=== PATIENT | male | born 1960 | race Caucasian/White ===

== ENCOUNTER 2017-06-30 16:52 | Inpatient (IN) | payer SELFPAY ==
[~2017-06-30] VITALS: Ht 177.8 cm; Wt 143.4 kg
[2017-06-30 17:36] LABS: HEMATOCRIT 46.5 % (38.0-50.0); HEMOGLOBIN 15.6 G/DL (12.5-16.6); MCH 28.4 PG (29.0-34.0); MCHC 33.5 G/DL (30.0-36.0); MCV 84.5 FL (86-99); PLATELET COUNT 223 K/uL (156-360); RBC DIS.WIDTH-CV 13.5 % (11.8-14.6); RBC DIS.WIDTH-SD 41.8 % (39-53)
[2017-06-30 17:50] LABS: CHLORIDE 105 mEq/L (99-109); SODIUM 139 mEq/L (136-147)
[2017-06-30 17:51] LABS: GLUCOSE 124 mg/dL (70-99)
[2017-06-30 17:55] LABS: CREATININE 0.8 mg/dL (0.6-1.3); GFR ESTIMATE (CALCULATED) > 59 mL/min/ (58.99-99999)
[2017-06-30 17:56] LABS: TROP-I INTERPRETATION NEGATIVE; TROPONIN-I 0.05 ng/mL (0.0-0.30); UREA NITROGEN (BUN) 8 mg/dL (9-23)
[2017-06-30 19:15] LABS: INTER. NORMALIZED RATIO 1.3
[2017-06-30 19:18] LABS: PTT 30.8 SEC (25-37)
[2017-06-30] MEDS ORDERED: VALSARTAN-HCTZ1 EAC3 PO (20:32)
[2017-06-30] MEDS ORDERED: AMLODIPINE BESY10 MG PO (20:32)
[2017-06-30] MEDS ORDERED: METFORMIN HCL500 M1 PO (20:32)
[2017-06-30] MEDS ORDERED: FOLIC ACID0.4 MG PO (20:33)
[2017-06-30] MEDS ORDERED: ALEVE220 MG PO (20:33)
[2017-06-30] MEDS ORDERED: MEN'S ONE DAIL1 EACH PO (20:33)
[2017-06-30] MEDS ORDERED: ADULT ASPIRIN R81 MG PO (20:33)
[2017-06-30] MEDS ORDERED: FISH OIL OMEGA1 EAC2 PO (20:33)
[2017-06-30 23:47] VITALS: BP 142/79
[2017-07-01 03:55] VITALS: BP 155/85
[2017-07-01 06:03] LABS: INTER. NORMALIZED RATIO 1.2
[2017-07-01 06:06] LABS: PTT 28.4 SEC (25-37)
[2017-07-01 06:19] LABS: BASOPHIL (%) 0.9 % (0-1); BASOPHIL COUNT 0.1 K/uL (0-0.1); EOSINOPHIL (%) 1.9 % (0-5); EOSINOPHIL COUNT 0.2 K/uL (0-0.3); HEMATOCRIT 44.4 % (38.0-50.0); HEMOGLOBIN 14.3 G/DL (12.5-16.6); IMMATURE GRANULOCYTE (%) 0.7 % (0.0-0.7); LYMPHOCYTE COUNT 3.1 K/uL (1.0-2.8); MCH 27.6 PG (29.0-34.0); MCHC 32.2 G/DL (30.0-36.0); MCV 85.7 FL (86-99); MONOCYTE (%) 8.1 % (3-12); MONOCYTE COUNT 0.8 K/uL (0-0.8); NEUTROPHIL (%) 57.4 % (45-76); NEUTROPHIL COUNT 5.7 K/uL (1.8-6.4); PLATELET COUNT 230 K/uL (156-360); RBC DIS.WIDTH-CV 13.6 % (11.8-14.6); RBC DIS.WIDTH-SD 42.8 % (39-53); RED BLOOD COUNT 5.18 M/uL (4.00-5.50); WHITE BLOOD COUNT 9.9 K/uL (4.1-10.2)
[2017-07-01 06:24] LABS: CHLORIDE 102 MEQ/L (99-109); CREATININE 0.8 MG/DL (0.6-1.3); GFR ESTIMATE (CALCULATED) > 59 mL/min/ (58.99-99999); GLUCOSE 119 mg/dL (70-99); POTASSIUM 3.7 MEQ/L (3.7-5.4); SODIUM 138 MEQ/L (136-147); UREA NITROGEN (BUN) 12 mg/dL (9-23)
[2017-07-01 08:15] VITALS: BP 180/83
[2017-07-01 12:21] VITALS: BP 169/90
[2017-07-01 15:48] VITALS: BP 178/88
[2017-07-01 19:55] VITALS: BP 165/79
[2017-07-01 23:07] VITALS: BP 183/91
[2017-07-02 04:11] VITALS: BP 135/77
[2017-07-02 05:56] LABS: CHLORIDE 101 MEQ/L (99-109); CREATININE 0.8 MG/DL (0.6-1.3); GFR ESTIMATE (CALCULATED) > 59 mL/min/ (58.99-99999); GLUCOSE 134 mg/dL (70-99); POTASSIUM 3.8 MEQ/L (3.7-5.4); SODIUM 136 MEQ/L (136-147); UREA NITROGEN (BUN) 11 mg/dL (9-23)
[2017-07-02 07:39] VITALS: BP 136/74
[2017-07-02 12:27] VITALS: BP 134/72
[2017-07-02 17:37] VITALS: BP 130/79
[2017-07-02 19:37] VITALS: BP 123/66
[2017-07-02 23:17] VITALS: BP 137/74
[2017-07-03 08:06] VITALS: BP 148/76
[2017-07-03] MEDS ORDERED: LEVAQUIN750 MG PO (09:33)
== END 2017-07-03 10:57 | disposition home or self-care (01) | DRG 194 ==
LOC: EME 16:52 → 3EAST 21:56 → EDOF 21:56 → ENRESERV 21:57 → 3EAST 22:54
PROVIDERS: Family Medicine; Hospitalist
DX: J15.9 Unspecified bacterial pneumonia (principal); J44.0 Chronic obstructive pulmonary disease with (acute) lower respiratory infection; R09.02 Hypoxemia; R04.2 Hemoptysis; E11.9 Type 2 diabetes mellitus without complications; I10 Essential (primary) hypertension; I25.10 Atherosclerotic heart disease of native coronary artery without angina pectoris; E66.01 Morbid (severe) obesity due to excess calories; Z68.42 Body mass index [BMI] 45.0-49.9, adult; Z79.84 Long term (current) use of oral hypoglycemic drugs; Z79.82 Long term (current) use of aspirin; Z95.5 Presence of coronary angioplasty implant and graft; Z87.891 Personal history of nicotine dependence
CPT/HCPCS: 71046; 71275; 80048; 82948; 83605; 84484; 85025; 85027; 85610; 85730; 87040; 87070; 87205; 87449; 93005; 94640; 94799; 99202; 99281; 99285; J0295; J0456; J1650; J7050

== ENCOUNTER 2017-09-06 11:40 | Observation (INO) | payer SELFPAY ==
[~2017-09-06] VITALS: Ht 180.3 cm; Wt 145.5 kg
[~2017-09-06 11:40] MED LIST: ADULT ASPIRIN R81 MG PO; ALEVE220 MG PO; AMLODIPINE BESY10 MG PO; FISH OIL OMEGA1 EAC2 PO; FOLIC ACID0.4 MG PO; LEVAQUIN750 MG PO; MEN'S ONE DAIL1 EACH PO; METFORMIN HCL500 M1 PO; VALSARTAN-HCTZ1 EAC3 PO
[2017-09-06 12:13] LABS: HEMATOCRIT 45.3 % (38.0-50.0); HEMOGLOBIN 15.6 G/DL (12.5-16.6); MCH 29.1 PG (29.0-34.0); MCHC 34.4 G/DL (30.0-36.0); MCV 84.5 FL (86-99); PLATELET COUNT 231 K/uL (156-360); RBC DIS.WIDTH-CV 13.4 % (11.8-14.6); RBC DIS.WIDTH-SD 41.2 % (39-53); RED BLOOD COUNT 5.36 M/uL (4.00-5.50); WHITE BLOOD COUNT 10.2 K/uL (4.1-10.2)
[2017-09-06 12:24] LABS: CHLORIDE 103 mEq/L (99-109); POTASSIUM 4.3 mEq/L (3.7-5.4); SODIUM 138 mEq/L (136-147)
[2017-09-06 12:25] LABS: GLUCOSE 144 mg/dL (70-99)
[2017-09-06 12:29] LABS: CREATININE 0.9 mg/dL (0.6-1.3); GFR ESTIMATE (CALCULATED) > 59 mL/min/ (58.99-99999)
[2017-09-06 12:30] LABS: UREA NITROGEN (BUN) 11 mg/dL (9-23)
[2017-09-06 15:40] LABS: TROP-I INTERPRETATION NEGATIVE; TROPONIN-I 0.03 ng/mL (0.0-0.30)
[2017-09-06 19:57] LABS: TROP-I INTERPRETATION NEGATIVE; TROPONIN-I 0.03 ng/mL (0.0-0.30)
[2017-09-06 22:18] VITALS: BP 153/81
[2017-09-07 00:10] VITALS: BP 159/76
[2017-09-07 01:03] LABS: TROP-I INTERPRETATION NEGATIVE; TROPONIN-I 0.03 ng/mL (0.0-0.30)
[2017-09-07 04:11] VITALS: BP 145/79
[2017-09-07 07:27] LABS: CHLORIDE 99 MEQ/L (99-109); CREATININE 0.9 MG/DL (0.6-1.3); GFR ESTIMATE (CALCULATED) > 59 mL/min/ (58.99-99999); GLUCOSE 135 mg/dL (70-99); POTASSIUM 4.4 MEQ/L (3.7-5.4); SODIUM 140 MEQ/L (136-147); UREA NITROGEN (BUN) 11 mg/dL (9-23)
[2017-09-07 07:55] VITALS: BP 164/83
[2017-09-07] MEDS ORDERED: LEVOFLOXACIN750 MG PO (11:56)
[2017-09-07] MEDS ORDERED: MUCINEX1200 MG PO (11:57)
[2017-09-07] MEDS ORDERED: PROAIR HFA8.5 GM IH (11:57)
== END 2017-09-07 12:33 | disposition home or self-care (01) ==
LOC: EME 11:40 → 5WEST 17:20 → EDOF 17:20 → ENRESERV 17:48 → 5WEST 21:40 → ENPENDDIS 09-07 → 5WEST 09-07 12:33
PROVIDERS: Hospitalist
DX: R07.9 Chest pain, unspecified (principal); J20.9 Acute bronchitis, unspecified; I10 Essential (primary) hypertension; I25.10 Atherosclerotic heart disease of native coronary artery without angina pectoris; Z95.5 Presence of coronary angioplasty implant and graft; Z87.01 Personal history of pneumonia (recurrent); Z90.49 Acquired absence of other specified parts of digestive tract; Z83.3 Family history of diabetes mellitus; Z87.891 Personal history of nicotine dependence; Z79.82 Long term (current) use of aspirin; Z79.84 Long term (current) use of oral hypoglycemic drugs
CPT/HCPCS: 71046; 80048; 84484; 85027; 93005; 94640; 99281; 99285; G0378

== ENCOUNTER 2018-01-18 07:14 | Inpatient (IN) | payer MEDICARE ==
[~2018-01-18] VITALS: Ht 175.3 cm; Wt 144.0 kg
[~2018-01-18 07:14] MED LIST changes: +LEVOFLOXACIN750 MG PO; +MUCINEX1200 MG PO; +PROAIR HFA8.5 GM IH
[2018-01-18 07:52] LABS: BASOPHIL (%) 0.6 % (0-1); BASOPHIL COUNT 0.1 K/uL (0-0.1); EOSINOPHIL (%) 1.2 % (0-5); EOSINOPHIL COUNT 0.2 K/uL (0-0.3); HEMATOCRIT 40.7 % (38.0-50.0); HEMOGLOBIN 13.9 G/DL (12.5-16.6); IMMATURE GRANULOCYTE (%) 0.5 % (0.0-0.7); LYMPHOCYTE (%) 11.8 % (15-42); LYMPHOCYTE COUNT 1.6 K/uL (1.0-2.8); MCHC 34.2 G/DL (30.0-36.0); MONOCYTE (%) 7.2 % (3-12); NEUTROPHIL (%) 78.7 % (45-76); NEUTROPHIL COUNT 10.8 K/uL (1.8-6.4); PLATELET COUNT 180 K/uL (156-360); RBC DIS.WIDTH-CV 13.9 % (11.8-14.6); RBC DIS.WIDTH-SD 43.1 % (39-53); RED BLOOD COUNT 4.79 M/uL (4.00-5.50); WHITE BLOOD COUNT 13.7 K/uL (4.1-10.2)
[2018-01-18 07:58] LABS: INTER. NORMALIZED RATIO 1.1
[2018-01-18 08:01] LABS: PTT 26.5 SEC (25-37)
[2018-01-18 08:04] LABS: CHLORIDE 102 mEq/L (99-109); SODIUM 137 mEq/L (136-147)
[2018-01-18 08:06] LABS: GLUCOSE 165 mg/dL (70-99)
[2018-01-18 08:10] LABS: CREATININE 0.8 mg/dL (0.6-1.3); GFR ESTIMATE (CALCULATED) > 59 mL/min/ (58.99-99999)
[2018-01-18 08:11] LABS: UREA NITROGEN (BUN) 12 mg/dL (9-23)
[2018-01-18 08:18] LABS: TROP-I INTERPRETATION NEGATIVE; TROPONIN-I 0.03 ng/mL (0.0-0.30)
[2018-01-18] MEDS ORDERED: LIPITOR20 MG PO (11:46)
[2018-01-18 13:32] VITALS: BP 137/72
[2018-01-18 15:55] VITALS: BP 157/70
[2018-01-18 16:00] LABS: TROP-I INTERPRETATION NEGATIVE; TROPONIN-I 0.03 ng/mL (0.0-0.30)
[2018-01-18 19:32] VITALS: BP 150/69
[2018-01-18 21:28] LABS: TROP-I INTERPRETATION NEGATIVE; TROPONIN-I 0.02 ng/mL (0.0-0.30)
[2018-01-19 00:49] VITALS: BP 126/71
[2018-01-19 03:53] VITALS: BP 127/70
[2018-01-19 06:34] LABS: BASOPHIL (%) 0.2 % (0-1); EOSINOPHIL (%) 0.1 % (0-5); HEMATOCRIT 42.3 % (38.0-50.0); IMMATURE GRANULOCYTE (%) 0.6 % (0.0-0.7); LYMPHOCYTE (%) 8.9 % (15-42); LYMPHOCYTE COUNT 1.1 K/uL (1.0-2.8); MCH 28.1 PG (29.0-34.0); MCHC 33.1 G/DL (30.0-36.0); MCV 84.8 FL (86-99); MONOCYTE (%) 1.2 % (3-12); MONOCYTE COUNT 0.2 K/uL (0-0.8); NEUTROPHIL COUNT 11.4 K/uL (1.8-6.4); PLATELET COUNT 185 K/uL (156-360); RBC DIS.WIDTH-CV 13.8 % (11.8-14.6); RBC DIS.WIDTH-SD 42.5 % (39-53); RED BLOOD COUNT 4.99 M/uL (4.00-5.50); WHITE BLOOD COUNT 12.8 K/uL (4.1-10.2)
[2018-01-19 07:29] VITALS: BP 143/71
[2018-01-19 08:54] LABS: CHLORIDE 99 MEQ/L (99-109); CREATININE 0.8 MG/DL (0.6-1.3); GFR ESTIMATE (CALCULATED) > 59 mL/min/ (58.99-99999); GLUCOSE 244 mg/dL (70-99); POTASSIUM 4.4 MEQ/L (3.7-5.4); SODIUM 137 MEQ/L (136-147); UREA NITROGEN (BUN) 13 mg/dL (9-23)
[2018-01-19 16:00] VITALS: BP 138/78
[2018-01-19 19:29] VITALS: BP 143/72
[2018-01-20 00:06] VITALS: BP 126/68
[2018-01-20 03:56] VITALS: BP 123/69
[2018-01-20 06:17] LABS: CREATININE 0.8 MG/DL (0.6-1.3); GFR ESTIMATE (CALCULATED) > 59 mL/min/ (58.99-99999)
[2018-01-20 06:18] LABS: UREA NITROGEN (BUN) 21 mg/dL (9-23)
[2018-01-20 07:16] VITALS: BP 119/67
[2018-01-20] MEDS ORDERED: SPIRIVA RESPIMAT4 G1 IH (07:28)
[2018-01-20] MEDS ORDERED: LEVAQUIN750 MG PO (07:28)
[2018-01-20] MEDS ORDERED: PREDNISONE10 MG PO (07:28)
[2018-01-20] MEDS ORDERED: MINOCIN100 MG PO (07:28)
[2018-01-20 07:40] LABS: HEMATOCRIT 41.6 % (38.0-50.0); HEMOGLOBIN 13.9 G/DL (12.5-16.6); MCH 28.9 PG (29.0-34.0); MCHC 33.4 G/DL (30.0-36.0); MCV 86.5 FL (86-99); RBC DIS.WIDTH-CV 14.1 % (11.8-14.6); RBC DIS.WIDTH-SD 44.4 % (39-53); RED BLOOD COUNT 4.81 M/uL (4.00-5.50); WHITE BLOOD COUNT 19.5 K/uL (4.1-10.2)
[2018-01-20 07:46] LABS: PLATELET COUNT 270 K/uL (156-360)
== END 2018-01-20 11:07 | disposition home or self-care (01) | DRG 190 ==
LOC: EME 07:14 → 5SOUTH 11:41 → EDOF 11:41 → ENRESERV 11:42 → 5SOUTH 12:58
PROVIDERS: Emergency Medicine; Hospitalist; Internal Medicine; Physician Assistant Medical
DX: J44.0 Chronic obstructive pulmonary disease with (acute) lower respiratory infection (principal); J15.8 Pneumonia due to other specified bacteria; J44.1 Chronic obstructive pulmonary disease with (acute) exacerbation; R78.81 Bacteremia; Z68.42 Body mass index [BMI] 45.0-49.9, adult; I25.10 Atherosclerotic heart disease of native coronary artery without angina pectoris; I10 Essential (primary) hypertension; E78.5 Hyperlipidemia, unspecified; E11.9 Type 2 diabetes mellitus without complications; Z87.891 Personal history of nicotine dependence; E66.9 Obesity, unspecified; Z83.3 Family history of diabetes mellitus; Z82.49 Family history of ischemic heart disease and other diseases of the circulatory system; Z90.49 Acquired absence of other specified parts of digestive tract; Z87.01 Personal history of pneumonia (recurrent)
CPT/HCPCS: 71045; 71275; 80048; 82565; 82948; 83605; 83735; 84484; 84520; 85025; 85027; 85379; 85610; 85730; 87040; 87070; 87077; 87186; 87205; 87449; 87801; 93005; 93970; 94640; 94760; 94799; 99281; 99285; A6214; J0295; J0456; J0692; J0696; J1644; J1815; J2920; J7050; J7512